=== PATIENT | female | born 1950 | race Caucasian/White ===

== ENCOUNTER 2018-12-16 08:38 | Emergency (ER) | payer OTHER ==
[2018-12-16 09:32] VITALS: BP 138/50
[2018-12-16 09:43] LABS: Influenza A Molecular POSITIVE (Negative)
--- NOTE | 2018-12-16 09:59 | ED ---
Respiratory - HPI Summary HPI Summary: 68 yr old female with the complaint of runny nose, cough, myalgias, chills. Onset about two days ago. She states her tested positive for flu A. She also has fatigue. She denies SOB, CP. She has been coughing heavily. - History of Current Complaint Chief Complaint: UCRespiratory Stated Complaint: NIETO,CHILLS Time Seen by Provider: 12/16/18 09:47 Pain Intensity: 5 - Allergy/Home Medications Allergies/Adverse Reactions: Allergies Allergy/AdvReac Type Severity Reaction Status Date / Time No Known Allergies Allergy Verified 12/16/18 09:28 Home Medications: Home Medications Dm/PE/Acetaminophen/Doxylamine [Vicks Dayquil/Nyquil Cold] 2 mis PO Q6H PRN 09/23 [History Confirmed 12/16/18] Phenylephrine/Dm/Acetaminop/GG [Vicks Dayquil Severe Cold-Flu] 2 each PO Q6H PRN 12/16/18 [History Confirmed 12/16/18] PMH/Surg Hx/FS Hx/Imm Hx - Cancer History Cancer Type, Location and Year: Breast Hx Chemotherapy: No Hx Radiation Therapy: Yes - Surgical History Surgery Procedure, Year, and Place: Right breast Lumpectomy 2000 Infectious Disease History: No Infectious Disease History: Denies: Traveled Outside the [place] in Last 30 Days - Family History Known Family History: Positive: None - Social History Occupation: Retired Lives: With Family Alcohol Use: Rare Substance Use Type: Reports: None Smoking Status (MU): Never Smoked Tobacco Review of Systems Positive: Fever, Chills, Fatigue Positive: Sore Throat, Nasal Discharge Positive: Cough Positive: Myalgia All Other Systems Reviewed And Are Negative: Yes Physical Exam Triage Information Reviewed: Yes Vital Signs On Initial Exam: Initial Vitals Temp Pulse Resp BP Pulse Ox 100 F 96 18 138/50 98 12/16/18 09:25 12/16/18 09:25 12/16/18 09:25 12/16/18 09:25 12/16/18 09:25 Vital Signs Reviewed: Yes Appearance: Positive: Well-Appearing, No Pain Distress Skin: Positive: Warm, Skin Color Reflects Adequate Perfusion Head/Face: Positive: Normal Head/Face Inspection Eyes: Positive: EOMI ENT: Positive: Pharyngeal erythema, Nasal congestion, Nasal drainage, TMs normal Neck: Positive: Nontender Respiratory/Lung Sounds: Positive: Clear to Auscultation, Breath Sounds Present Cardiovascular: Positive: RRR. Negative: Murmur Abdomen Description: Negative: Distended Musculoskeletal: Positive: Strength/ROM Intact Neurological: Positive: Sensory/Motor Intact, Alert, Oriented to Person Place, Time, CN Intact II-III, Normal Gait, Speech Normal Psychiatric: Positive: Normal - Scarlett Coma Scale Best Eye Response: 4 - Spontaneous Best Motor Response: 6 - Obeys Commands Best Verbal Response: 5 - Oriented Coma Scale Total: 15 Diagnostics - Vital Signs Vital Signs Temp Pulse Resp BP Pulse Ox 12/16/18 09:25 100 F 96 18 138/50 98 - Laboratory Lab Results: Lab Results 12/16/18 Range/Units 09:39 Influenza A (Rapid) Positive A (Negative) Lab Statement: Any lab studies that have been ordered have been reviewed, and results considered in the medical decision making process. Disposition - Course Course Of Treatment: 68 yr old with influenza. Rx tamiflu.. - Diagnoses Provider Diagnoses: Influenza Discharge - Sign-Out/Discharge Documenting (check all that apply): Patient Departure All imaging exams completed and their final reports reviewed: No Studies - Discharge Plan Condition: Good Disposition: HOME Prescriptions: Oseltamivir CAP* [Tamiflu CAP*] 75 mg PO BID #10 cap Patient Education Materials: Influenza (ED), Hypertension (ED) Referrals: Phillip Hdz MD [Primary Care Provider] - 2 Days - Billing Disposition and Condition Condition: GOOD Disposition: Home
== END 2018-12-16 10:06 | disposition home or self-care (01) ==
LOC: UCCORT 08:38
DX: J11.1 Influenza due to unidentified influenza virus with other respiratory manifestations (principal)
CPT/HCPCS: 99212; G0463

== ENCOUNTER 2019-06-05 10:42 | Emergency (ER) | payer MEDICARE ==
[2019-06-05 11:04] VITALS: BP 147/56
--- NOTE | 2019-06-05 11:36 | UC ---
Throat Pain/Nasal Marlon HPI - HPI Summary HPI Summary: 69 yo female for the past 5 days has had sinus congestion, post nasal drip no ear pain Has AM vertigo Has been taking OTC anti histamine in AM and this markedly improves her symptoms No headache - History of Current Complaint Chief Complaint: UCGeneralIllness Stated Complaint: CONGESTION Time Seen by Provider: 06/05/19 11:17 Hx Obtained From: Patient Onset/Duration: Gradual Onset, Lasting Days Severity: Mild Pain Intensity: 0 Pain Scale Used: 0-10 Numeric Associated Signs & Symptoms: Positive: Sinus Discomfort, Nasal Discharge, Other - AM vertigo - Epiglottits Risk Factors Epiglottis Risk Factors: Negative - Allergies/Home Medications Allergies/Adverse Reactions: Allergies Allergy/AdvReac Type Severity Reaction Status Date / Time No Known Allergies Allergy Verified 06/05/19 11:05 Home Medications: Home Medications Anti-Histamine 1 tab PO DAILY 06/05/19 [History] Aspirin [Aspirin Childrens 81 MG] 81 mg PO DAILY 06/05/19 [History Confirmed 11/23] PMH/Surg Hx/FS Hx/Imm Hx Previously Healthy: Yes Cancer History: Breast Cancer - Surgical History Surgical History: Yes Surgery Procedure, Year, and Place: Right breast Lumpectomy 2000 - Family History Known Family History: Positive: Hypertension - Social History Alcohol Use: Rare Substance Use Type: None Smoking Status (MU): Never Smoked Tobacco Review of Systems All Other Systems Reviewed And Are Negative: Yes Constitutional: Positive: Negative Skin: Positive: Negative Eyes: Positive: Negative ENT: Positive: Nasal Discharge, Sinus Congestion, Sinus Pain/Tenderness Respiratory: Positive: Cough Cardiovascular: Positive: Negative Gastrointestinal: Positive: Negative Genitourinary: Positive: Negative Motor: Positive: Negative Neurovascular: Positive: Negative Musculoskeletal: Positive: Negative Neurological: Positive: Negative Psychological: Positive: Negative Physical Exam Triage Information Reviewed: Yes Appearance: Well-Appearing, No Pain Distress, Well-Nourished Vital Signs: Initial Vital Signs Temp 99 F 06/05/19 11:01 Pulse 80 06/05/19 11:01 Resp 16 06/05/19 11:01 BP 147/56 06/05/19 11:01 Pulse Ox 99 06/05/19 11:01 Vital Signs Reviewed: Yes Eyes: Positive: Conjunctiva Clear, Other: - no nystagmus ENT: Positive: Nasal congestion, TM bulging - R. Negative: Hearing grossly normal - decreased hearing right ear, Nasal drainage, Tonsillar swelling, Tonsillar exudate, Trismus, Hoarse voice, Dental tenderness, Sinus tenderness, Uvula midline Neck: Positive: Supple, Nontender, No Lymphadenopathy Respiratory: Positive: Lungs clear, Normal breath sounds, No respiratory distress, No accessory muscle use Cardiovascular: Positive: RRR, No Murmur Bowel Sounds: Positive: Present Musculoskeletal: Positive: ROM Intact, No Edema Neurological: Positive: Alert, Other: - non focal exam, no pronator drip, - rhomberg, normal gait Psychological Exam: Normal Skin Exam: Normal Throat Pain/Nasal Course/Dx - Differential Dx/Diagnosis Provider Diagnosis: Serous otitis media, Vertigo Discharge - Sign-Out/Discharge Documenting (check all that apply): Patient Departure All imaging exams completed and their final reports reviewed: No Studies - Discharge Plan Condition: Stable Disposition: HOME Patient Education Materials: Vertigo (ED), Serous Otitis Media (ED) Referrals: Phillip Hdz MD [Primary Care Provider] - 1 Week Additional Instructions: I suggest you continue OTC antihistamine saline nasal spray : two sprays each nostril 2x day use flonase : 2 sprays each nostril 2x day about 5 minutes after the saline...you can do this for 2-3 weeks RECHECK FOR worsening symptoms loud ringing or roaring in your ears Headache ear pain - Billing Disposition and Condition Condition: STABLE Disposition: Home
== END 2019-06-05 11:42 | disposition home or self-care (01) ==
LOC: UCCORT 10:42
DX: H65.91 Unspecified nonsuppurative otitis media, right ear (principal); R42 Dizziness and giddiness; Z85.3 Personal history of malignant neoplasm of breast
CPT/HCPCS: 99211; G0463

== ENCOUNTER 2019-12-20 19:37 | Emergency (ER) | payer MEDICARE ==
--- OUTSIDE RECORDS SUMMARY | 2019-12-20 19:43 | XMS REPORT | Continuity of Care Document ---
:1950 External Reference #:[id number] Author Name Tushar Newman PA Address [address], [address] [place] [address] Care Team Providers Name Role Phone Phillip Hdz MD - Family Medicine Care Team Information Public Works Director [phone] Problems Active Problems Provider Date Elevated blood-pressure reading Mayco Benites M.D., Onset: 01/02/2013 without diagnosis of hypertension [facility] Cardiovascular symptoms Mayco Benites M.D., Onset: 01/02/2013 [facility] Heart murmur Mayco Benites M.D., Onset: 01/02/2013 [facility] Social History Type Date Description Comments Sex Unknown Tobacco Use Start: Unknown Never Smoked Cigarettes ETOH Use Rarely consumes alcohol Tobacco Use Start: Unknown Patient denies history of smoking Smoking Status Reviewed: 12/04/19 Patient denies history of smoking Allergies, Adverse Reactions, Alerts Description No Known Drug Allergies Medications Active Medications SIG Qnty Indications Ordering Date Provider Miralax as directed as 238gm Z12.11 Jg Day, 12/04/2019 3350NF Powder colonscopy prep Bisacoakhil Ec as directed for 4tabs Z12.11 Jg Day, 12/04/2019 5mg colonoscopy prep Tablets DR Hui Relief take 1 tab day 2units Z12.11 Jg Day, 12/04/2019 80mg before colonoscopy Chewtasara and 1 tab day of colonoscopy early in the am Aspirin 1 by mouth every 100tabs Corry Ibrahim 12/11/[address] isabel Flannery, MSN, [facility] Calcium po qd Unknown 600mg Tablets Multivitamins 1 po qd Unknown Tablets Rosuvastatin Calcium Take One Tablet By Unknown Mouth Every Day 10mg Tablets Immunizations Description No Information Available Vital Signs Date Vital Result Comment 12/04/2019 9:28am BP Systolic Sitting Left Arm 186 mmHg BP Diastolic Sitting Left Arm 87 mmHg Body Temperature 98.6 F Heart Rate 82 /min Respiratory Rate 16 /min Height 62 inches 5'2" Weight 161.50 lb Pain Level 0 BMI (Body Mass Index) 29.5 kg/m2 BSA (Body Surface Area) 1.75 m2 [place] body weight in kilograms 50 kg O2 % BldC Oximetry 99 % Ra 01/02/2013 10:55am BP Systolic Sitting Left Arm 124 mmHg BP Diastolic Sitting Left Arm 92 mmHg Heart Rate 80 /min Regular Respiratory Rate 16 /min Height 62 inches 5'2" Weight 134.00 lb BMI (Body Mass Index) 24.5 kg/m2 Results Description No Information Available Procedures Date Code Description Status 05/10/2015 12023511 Colonoscopy Completed 11/02/2003 29260123 Colonoscopy Completed Medical Devices Description No Information Available Encounters Description No Information Available Assessments Date Code Description Provider 12/04/2019 K63.5 Polyp of colon Tushar Newman PA 12/04/2019 K62.5 Hemorrhage of anus and rectum Tushar Newman PA 12/04/2019 Z12.11 Encounter for screening for malignant Tushar Newman PA neoplasm of colon Plan of Treatment Future Appointment(s):01/12/2020 8:30 am - Jg Day MD at Operating Room01/29/2020 3:40 pm - Jg Day MD at GI01/05/2020 3:45 pm - Tushar Newman PA at 12/04/2019 - Tushar Newman PAK63.5 Polyp of ifjvoS65.5 Hemorrhage of anus and rectumComments:She will follow-up with Dr. Day after her procedure to consider whether or not she is a candidate for hemorrhoid [id number] Encounter for screening for malignant neoplasm of colonNew Medication:Miralax 3350 NF - as directed as colonscopy prepBisacodyl Ec 5 mg - as directed for colonoscopy prepGas Relief 80 mg - take 1 tab day before colonoscopy and 1 tab day of colonoscopy early in the am Functional Status Functional Condition Comment Date Status Independent with all ADL's Active Mental Status Description No Information Available Referrals Description No Information Available
[2019-12-20 19:49] VITALS: BP 160/80
--- NOTE | 2019-12-20 20:09 | UC ---
Epistaxis Nasal HPI - HPI Summary HPI Summary: 69-year-old female presents with complaints of multiple nosebleeds over the past 3 days. States she had 2 nosebleeds 3 days ago each lasting about 5-10 minutes and stopped with direct pressure. She reports that for the first nosebleed she had just blown her nose very hard. The next day had another nosebleed after blowing her nose which again stopped after about 5 minutes with direct pressure. Patient had one other nosebleed at approximately 6:00 PM this evening that occurred again after blowing her nose and lasted approximately 5 minutes. Her was concerned about her blood pressure so she used a kiosk at the local pharmacy and had a reading of 180/105. States she has been treated in the past for high blood pressure but was taken off of her medications after losing some weight. Denies headache, visual disturbances, dizziness, facial droop, slurred or difficulty speaking, numbness, tingling, or weakness of her arms or legs, chest pain, or shortness of breath. - History of Current Complaint Chief Complaint: UCGeneralIllness Stated Complaint: NOSEBLEEDS/ ELEVATED BLOOD PRESSURE Time Seen by Provider: 12/20/19 19:54 Hx Obtained From: Patient Pain Intensity: 0 - Allergies/Home Medications Allergies/Adverse Reactions: Allergies Allergy/AdvReac Type Severity Reaction Status Date / Time No Known Allergies Allergy Verified 12/20/19 19:49 Home Medications: Home Medications Calcium Carbonate [Calcium] 500 mg PO 12/20/19 [History Confirmed 12/20/19] Cholecalciferol (Vitamin D3) [Vitamin D-3] 2,000 unit PO 12/20/19 [History Confirmed 12/20/19] Multivitamin [Multivitamins] 1 cap PO 12/20/19 [History] Rosuvastatin Calcium [Crestor] 10 mg PO DAILY 12/20/19 [History Confirmed ] PMH/Surg Hx/FS Hx/Imm Hx Endocrine History: Dyslipidemia - Surgical History Surgical History: Yes Surgery Procedure, Year, and Place: Right breast Lumpectomy 2000 - Family History Known Family History: Positive: Hypertension - Social History Occupation: Retired Lives: With Family Alcohol Use: Occasionally Substance Use Type: None Smoking Status (MU): Never Smoked Tobacco Review of Systems All Other Systems Reviewed And Are Negative: Yes Constitutional: Negative: Fever, Chills ENT: Negative: Epistaxis, Sore Throat, Ear Ache, Nasal Discharge, Sinus Congestion, Sinus Pain/Tenderness Respiratory: Negative: Shortness Of Breath, Cough Cardiovascular: Negative: Palpitations, Chest Pain Gastrointestinal: Negative: Abdominal Pain, Vomiting, Nausea Genitourinary: Positive: Negative Musculoskeletal: Positive: Negative Neurological/Mental Status: Positive: Negative Is Patient Immunocompromised?: No Physical Exam - Summary Physical Exam Summary: GENERAL APPEARANCE: Alert and cooperative older adult female who appears to be in no acute distress. EYES: Conjunctiva clear. No drainage. EARS: External auditory canals and tympanic membranes clear, hearing grossly intact. NOSE: No nasal discharge. No active bleeding. Small abrasion to the nasal mucosa of the left anterior nostril with intact clot. THROAT: Pharynx normal. No tonsilar inflammation, swelling, exudate, or lesions. Uvula midline. NECK: Neck supple, non-tender without lymphadenopathy. CARDIAC: Normal S1 and S2. No S3, S4 or murmurs. Rhythm is regular. There is no peripheral edema, cyanosis or pallor. Extremities are warm and well perfused. Capillary refill is less than 2 seconds. Peripheral pulses intact. LUNGS: Clear to auscultation without rales, rhonchi, wheezing or diminished breath sounds. ABDOMEN: Positive bowel sounds. Soft, nondistended, nontender. No guarding or rebound. No masses or hepatosplenomegally. MUSKULOSKELETAL: ROM intact to all extremities. No joint erythema or tenderness. Normal muscular development. Normal gait. SKIN: Skin normal color, texture and turgor with no lesions or eruptions. Triage Information Reviewed: Yes Vital Signs: Initial Vital Signs Temp 97.9 F 12/20/19 19:44 Pulse 76 12/20/19 19:44 Resp 14 12/20/19 19:44 BP 160/80 12/20/19 19:44 Pulse Ox 100 12/20/19 19:44 Vital Signs Reviewed: Yes Epistaxis Nasal Course/Dx - Course Course Of Treatment: 69-year-old female presents with complaints of multiple nosebleeds over the past 3 days. States she had 2 nosebleeds 3 days ago each lasting about 5-10 minutes and stopped with direct pressure. She reports that for the first nosebleed she had just blown her nose very hard. The next day had another nosebleed after blowing her nose which again stopped after about 5 minutes with direct pressure. Patient had one other nosebleed at approximately 6:00 PM this evening that occurred again after blowing her nose and lasted approximately 5 minutes. Her was concerned about her blood pressure so she used a kiosk at the local pharmacy and had a reading of 180/105. States she has been treated in the past for high blood pressure but was taken off of her medications after losing some weight. Denies headache, visual disturbances, dizziness, facial droop, slurred or difficulty speaking, numbness, tingling, or weakness of her arms or legs, chest pain, or shortness of breath. Afebrile. Patient's blood pressure was elevated 160/80. Vital signs were otherwise stable. Patient was neurologically intact, had a small abraded area to the anterior mucosa of the left nostril with a clot contact, no active bleeding, and remainder of the exam was unremarkable. Discussed with the patient at I felt it was unlikely that the elevated blood pressure was a cause of her nosebleed and that with no active bleeding at present that no other intervention was necessary. We discussed nosebleed prevention and first aid treatment. I have recommended that she follow up with her primary care provider within 7 days for recheck of her blood pressure. Suspect right guidance and warning symptoms were reviewed with the patient. Verbalizes understanding and agrees with plan of care. - Differential Dx/Diagnosis Differential Diagnosis/HQI/PQRI: Epistaxis, Hypertension, Sinusitis, Trauma Provider Diagnosis: Epistaxis, Elevated blood pressure reading Discharge ED - Sign-Out/Discharge Documenting (check all that apply): Patient Departure All imaging exams completed and their final reports reviewed: No Studies - Discharge Plan Condition: Stable Disposition: HOME Patient Education Materials: Nosebleed (ED), Hypertension (ED) Referrals: Phillip Hdz MD [Primary Care Provider] - 7 Days Additional Instructions: To help prevent nose bleeds in the future: Avoid picking your nose. Keep the nasal passages moist using a saline nasal spray. Run a cool mist humidifier in your room at night. Avoid irritants such as smoking and chemical sprays such as air fresheners or pulmonary function technician. First Aid for nose bleeds: Sit up and lean forward to help prevent the blood from running down the back of your throat. Pinch your nose right at the base of the nasal bone for at least 15 minutes without releasing pressure. Apply ice to the bridge of your nose. If you are still bleeding after holding pressure for 15 minutes, try packing your nose with a cotton ball and pinch for another 15 minutes. Your blood pressure was elevated in the clinic today. You should follow up with your primary care provider within 7-14 days to have this rechecked. Seek immediate medical attention in the emergency room if have a sudden severe headache, visual disturbances, dizziness, slurred or difficulty speaking, facial droop, weakness, numbness, or tingling in the arms or legs, chest pain, shortness of breath, or any worsening of symptoms. - Billing Disposition and Condition Condition: STABLE Disposition: Home
== END 2019-12-20 20:28 | disposition home or self-care (01) ==
LOC: UCCORT 19:37
DX: R04.0 Epistaxis (principal); R03.0 Elevated blood-pressure reading, without diagnosis of hypertension; S00.31XA Abrasion of nose, initial encounter; E78.5 Hyperlipidemia, unspecified; Z79.899 Other long term (current) drug therapy; X58.XXXA Exposure to other specified factors, initial encounter; Y92.9 Unspecified place or not applicable
CPT/HCPCS: 99211; G0463